=== PATIENT | male | born 1940 | race Caucasian/White ===

== ENCOUNTER 2016-10-11 00:02 | Emergency (ER) | payer BC ==
[2016-10-11 00:51] VITALS: BP 171/108; PULSE 68; TEMP 98.4; BMI 23.6
--- NOTE | 2016-10-11 00:54 | PDOC ---
History of Present Illness - General Chief Complaint: Pain, Acute Stated Complaint: RIGHT THIGH PAIN Time Seen by Provider: 10/11/16 00:03 - History of Present Illness Initial Comments: This 76-year-old man with a history of hypertension and hyperlipidemia, presents with 2 day history of right posterior thigh pain. Pain occurs mainly in the overnight hours and is not associated with activity or position. The patient has no recall of overuse or trauma to the area. There is no edema/ wound/skin break in the left lower extremity. He denies fever/chills/shortness of breath or cough. Patient states that at approximately 5 days prior to the onset of the pain, he drove for an extended period of time(approximately 5 hours ) without stopping. Patient is concerned that he has a DVT. He has no previous history of DVT/PE or other thromboembolic disease. Past History - Past Medical History Allergies/Adverse Reactions: Allergies Allergy/AdvReac Type Severity Reaction Status Date / Time No Known Drug Allergies Allergy Verified 10/11/16 00:10 Home Medications: Ambulatory Orders Aspirin Coated [Ecotrin -] 81 mg PO DAILY 03/18/13 Lisinopril/Hydrochlorothiazide [Lisinopril-Hctz 20-12.5 mg Tab] 1 each PO DAILY 03/18/13 Simvastatin [Zocor] 40 mg PO HS 03/18/13 Tamsulosin HCl [Flomax] 0.4 mg PO HS 03/18/13 Anemia: No Asthma: No Cancer: No Cardiac Disorders: No CVA: No COPD: No CHF: No Dementia: No Diabetes: No GI Disorders: No Disorders: Yes (BPH) HTN: Yes Hypercholesterolemia: Yes Liver Disease: No Seizures: No Thyroid Disease: No - Surgical History Abdominal Surgery: Yes (RIGHT HERNIORRAPHY 1980S) Appendectomy: No Cardiac Surgery: No Cholecystectomy: No Lung Surgery: No Neurologic Surgery: No Orthopedic Surgery: No - Psycho/Social/Smoking Cessation Hx Anxiety: No Suicidal Ideation: No Smoking History: Never smoked Have you smoked in the past 12 months: No Information on smoking cessation initiated: No Hx Alcohol Use: Yes Drug/Substance Use Hx: No Substance Use Type: Alcohol Hx Substance Use Treatment: No Review of Systems - Review of Systems Able to Perform ROS?: Yes Comments:: 12 point review of systems is negative except for what is noted in the history of present illness *Physical Exam - Vital Signs Last Vital Signs Temp Pulse Resp BP Pulse Ox 98.4 F 68 16 171/108 96 10/11/16 00:47 10/11/16 00:47 10/11/16 00:47 10/11/16 00:47 10/11/16 00:47 - Physical Exam Comments: GENERAL:Adult male in no acute distress HEAD: Normal with no signs of trauma. EYES: PERRLA, EOMI, sclera anicteric, conjunctiva clear. ENT: Ears normal, nares patent, oropharynx clear without exudates. Dry mucous membranes. NECK: Normal range of motion, supple without lymphadenopathy, JVD, or masses. LUNGS: Breath sounds equal, clear to auscultation bilaterally. No wheezes, and no crackles. HEART:Regular rate and rhythm, normal S1 and S2 without murmur, rub or gallop. ABDOMEN:.normal bowel sounds No guarding,tenderness or rebound.No masses No distention. EXTREMITIES: Right lower extremitymild pain to palpation mid posterior thigh; no edema/erythema/increased warmth to touch. No palpable cords; no popliteal masses; distal extremity warm and dry with excellent capillary refill Palpable femoral arteries present bilaterally Extremity exam is otherwise normal NEUROLOGICAL: Cranial nerves II through XII grossly intact. Normal speech. No focal neurological deficits. MUSCULOSKELETAL: Back non-tender to palpation, no CVA tenderness SKIN: Warm, Dry, normal turgor, no rashes or lesions noted. Progress Note - Progress Note Progress Note: Doppler duplex ultrasound study of the right lower extremity performed to evaluate for DVT in this 76-year-old man who has a history of driving nonstop for several hours prior to onset of his symptoms. No evidence of DVT or other acute abnormality on ultrasound study. Patient will be discharged with presumed hamstring muscle strain. He should avoid excessive strenuous activity involving lower extremities for the next several days; he should be local warmth applied to the area of pain. He should follow-up with his general doctor within the next few days. He should return to the emergency room if he has persistent severe pain or has edema, erythema, increased warmth in the area. *DC/Admit/Observation/Transfer Diagnosis at time of Disposition: Right hamstring muscle strain Qualifiers: Encounter type: initial encounter Qualified Code(s): S76.311A - Strain of muscle, fascia and tendon of the posterior muscle group at thigh level, right thigh, initial encounter - Discharge Dispostion Disposition: HOME Condition at time of disposition: Stable - Patient Instructions Printed Discharge Instructions: DI for Muscle Strain Additional Instructions: Avoid strenuous activity involving lower extremity muscles for the next week Local warmth to area as needed Follow-up with your general doctor within the next 5 days Return to ER if you have severe pain or develop new weakness/numbness
== END 2016-10-11 02:35 | disposition home or self-care (01) ==
LOC: FER 00:02
DX: S76.311A Strain of muscle, fascia and tendon of the posterior muscle group at thigh level, right thigh, initial encounter (principal); X58.XXXA Exposure to other specified factors, initial encounter; Y93.89 Activity, other specified; Y92.9 Unspecified place or not applicable; N40.0 Benign prostatic hyperplasia without lower urinary tract symptoms; I10 Essential (primary) hypertension; E78.00 Pure hypercholesterolemia, unspecified
CPT/HCPCS: 93971-TC; 99281-25